=== PATIENT | female | born 1995 | race Caucasian/White ===

== ENCOUNTER 2022-05-08 10:31 | Emergency (ER) | payer BC, SELFPAY ==
[2022-05-08 10:39] VITALS: BP 108/75; PULSE 79; RESP 16; TEMP 36.6; O2SAT 100
--- NOTE | 2022-05-08 11:37 | ED.GENADUL_ITS ---
Discharge Plan Disposition Patient Disposition: HOME Condition: Stable Discharge Details Clinical Impression: Laceration of finger of left hand Primary Care Provider: Unknown,Unknown ED Provider: Casper Ochoa Home Meds and New Rx's Prescriptions: No Action No Known Home Meds Discharge Instructions Instructions: Finger Laceration (ED) Additional Instructions: Watch for any signs of infection and return immediately to the emergency department if these occur. Otherwise keep dressing in place for the next 24-48 hours and then keep wound clean and dry. Return to the emergency department 7- 10 days for suture removal. Discharge Data Discharge Date/Time-TO BE ENTERED AT DEPARTURE: 05/08/22 11:46 Medical Decision Making Patient presenting to the emergency department for chief complaint of left index finger laceration. Denies all other symptoms and states up-to-date tetanus. Physical exam shows a 2 cm laceration to the proximal third chest below the PIP. Patient does have decreased sensation distal to the injury on the side of the ulnar aspect otherwise full range of motion strength and remaining neuro intact. Wound was repaired please see procedure note for repair which patient tolerated well. Did place patient on orthopedic follow-up list for wound recheck and neuro check due to potential nerve damage but I do not feel that this is emergent at this time given that some sensation is intact. After discussion of diagnosis and plan of care patient has no further needs, questions, or concerns and states clear understanding to return to the emergency department for any worsening symptoms. This documentation was generated using [employer] dictation system, please disregard any oddities of phrase or misspellings. HPI General Mode of arrival: ambulatory . Date/Time Provider Initiated Documentation: 05/08/22 10:49 . Limitations to Documentation: no limitations . Information obtained by: patient and RN notes reviewed . History of Present Illness 26 year old F presents to the emergency department with the chief complaint of Left index finger left, described as moderate, with intensity rated at 7. Quality is described as sharp, and is localized to the left and upper extremity. Patient reports no radiation. Patient started experiencing this hour(s) (1) and it has been constant. No relieving factors improve symptom(s), No exacerbating factors reported . Patient notes no other symptoms.. Patient did receive the following treatments prior to arrival, none Related Data Home Medications Medication Instructions Recorded Confirmed Unknown [No Known Home Meds] 05/08/22 05/08/22 Allergies Allergy/AdvReac Type Severity Reaction Status Date / Time amoxicillin Allergy Unverified 05/08/22 10:42 azithromycin Allergy Unverified 05/08/22 10:42 shellfish derived AdvReac Unverified 05/08/22 10:42 Sulfa (Sulfonamide AdvReac Unverified 05/08/22 10:42 Antibiotics) General Stated Complaint: Laceration ROSALBA: 4 Review of Systems Narrative: 6 systems reviewed and unremarkable except what is marked below. Musculoskeletal Musculoskeletal: Denies limited range of motion, Denies numbness and Denies tingling Integumentary/Breasts Skin/Breast: Reports as per HPI Neurologic Neurologic: Denies numbness and Denies tingling PFSH All Active Problems Laceration of finger of left hand (Acute) Social History Smoking/Tobacco Use Status: Never Smoking risk assessment performed?: Yes Alcohol Intake: never Drug use: Never Substance use type: does not use Do you feel safe at home: Yes Do you feel safe in your relationship?: Yes Exam Const General: cooperative, no acute distress and not ill appearing Orientation: alert, awake and oriented x3 Resp Effort & Inspection: normal respiratory effort, able to speak in complete sentences and no respiratory distress Cardio Rate: regular rate Rhythm: regular rhythm Pulses: radial pulses present and normal peripheral pulses Skin General skin exam: no rashes or lesions noted Neuro General: patient alert, patient awake, patient oriented x3, moves all extremities and no focal motor deficits Extrem General: normal exam except as noted Left upper extremity: hand Details: laceration 2nd digit palmar aspect mid Details: linear, actively bleeding, involving subcutaneous tissue, with motor nerve function intact and with sensation intact (Slightly decreased on the plantar aspect to the distal 2/3) Course Vital Signs Vital signs: Vital Signs Temperature 36.6 C 05/08/22 10:39 Pulse 79 05/08/22 10:39 Respiratory Rate 16 05/08/22 10:39 Blood Pressure 108/75 05/08/22 10:39 Pulse Oximetry 100 05/08/22 10:39 Temperature 36.6 C 05/08/22 10:39 Temperature Source Temporal Artery Scan 05/08/22 10:39 Pulse 79 05/08/22 10:39 Respiratory Rate 16 05/08/22 10:39 Respiratory Effort Non-Labored 05/08/22 10:42 Blood Pressure 108/75 05/08/22 10:39 Blood Pressure Position Supine 05/08/22 10:39 Pulse Oximetry 100 05/08/22 10:39 Oxygen Delivery Method Room Air 05/08/22 10:39 Oxygen Flow Rate 0 05/08/22 10:39 Pain Level 4 05/08/22 10:42 Procedures Laceration Laceration 1: Site: hand Side (If applicable): left Size (cm): 2 Description: linear and clean Depth: simple, single layer Local Anesthetic: Lidocaine 1% Amount of anesthesia used (mL): 4 Pre-repair: wound explored, irrigated extensively and deep structures intact Skin layer closed with: other (prolene) Size (cm): 4-0 Number of sutures: 3 Technique: simple, interrupted
== END 2022-05-08 11:46 | disposition home or self-care (01) ==
PROVIDERS: Emergency Provider Nurse Practitioner Family
DX: S61.211A Laceration without foreign body of left index finger without damage to nail, initial encounter (principal); W26.0XXA Contact with knife, initial encounter
CPT/HCPCS: 12001